=== PATIENT | male | born 1965 | race Caucasian/White ===

== ENCOUNTER 2020-04-17 02:21 | Emergency (ER) | payer OTHER ==
[~2020-04-17] VITALS: Ht 195.6 cm; Wt 142.9 kg
[2020-04-17 02:25] VITALS: BP_SYST 116
--- NOTE | 2020-04-17 02:30 | NUR ---
Patient to ER bed 6 for evaluation. Side rails up. Report given to
--- NOTE | 2020-04-17 03:00 | NUR ---
Dr. Agarwal bedside for Pt eval
[2020-04-17] MEDS ORDERED: MORPHINE 4 MG/ML INJ. SYRINGE IM ONE (03:15)
[2020-04-17] MEDS ORDERED: traMADol HCL HCL 50 MG TABLET (ULTRAM) PO ONE (03:15)
--- NOTE | 2020-04-17 03:20 | NUR ---
Pt BIB family to ED C/O low back pain beginning at 4 PM shortly after lifting furniture. Described as sharp, across low back with right-sided radiation to the hip and buttock. Worse with movements especially of the torso. Tried Motrin but it did not allay his pain. No perineal numbness, history of malignancy, disc disease, trouble with balance, motor weakness, sensory derangements, IV drug use, trouble voiding, recent instrumentation, vomiting, or any other symptoms
--- NOTE | 2020-04-17 04:30 | NUR ---
VSS no s/s of acute distress Resting on gurney rails up
--- NOTE | 2020-04-17 05:10 | NUR ---
Pain meds are mildly effective for back pain, but pt fear is not enough. Dr. Agarwal aware
[2020-04-17] MEDS ORDERED: CYCLOBENZAPRINE HCL 10 MG TABLET (FLEXERIL) PO ONE (05:15)
[2020-04-17] MEDS ORDERED: KETOROLAC TROMETHAMINE 60 MG/2 ML VIAL IM ONE (05:20)
--- NOTE | 2020-04-17 06:00 | NUR ---
Dr. Agarwal gave verbal order for Toradol 60 mg IM, well tolerated
[2020-04-17 06:38] VITALS: BP_SYST 116
--- NOTE | 2020-04-17 06:38 | NUR ---
Patient given written and verbal discharge instructions and verbalizes understanding. ER MD discussed with patient the results and treatment provided. Patient in stable condition. ID arm band removed. Rx of Flexeril and Naprosyn given. Patient educated on pain management and to follow up with PMD. Pain Scale 0/10 Opportunity for questions provided and answered. Medication side effect fact sheet provided.
== END 2020-04-17 06:38 | disposition home or self-care (01) ==
LOC: SED 02:21
DX: M54.5 Low back pain (principal)
CPT/HCPCS: 82962; 96372; 99283; J1885; J2270